=== PATIENT | male | born 1965 | race Caucasian/White ===

== ENCOUNTER 2020-10-17 08:01 | Emergency (ER) | payer SELFPAY ==
[~2020-10-17] VITALS: Ht 182.9 cm; Wt 77.2 kg
[~2020-10-17 08:01] MED LIST: ASPI-886 PO; FAMO20TA5 PO; IBUP-1027 PO; METO25TA4 PO; PSYL3.4P PO
--- NOTE | 2020-10-17 08:48 | RAD ---
Exam performed: One view chest. Indication: Reason: CHEST PAIN / Spl. Instructions: / History: Date of Service: 10/17/2020 8:30 AM Comparison: None available. Single AP upright portable view chest findings: Cardiomediastinal silhouette is within limits of normal. No acute infiltrates, effusion or pneumotho rax is detected. The bony structures are normal. Impression: No acute cardiopulmonary process is detected. Electronically signed by: Jesusita Chavez MD (10/17/2020 8:46 AM) [facility]PITALDaniele
[2020-10-17 08:53] LABS: BASO # 0.1 x10^3/uL (0.0-0.2); BASO % 1 % (0-3); EOS # 0.2 x10^3/uL (0.0-0.7); EOS % 2 % (0-3); HEMATOCRIT 41.5 % (39.0-53.0); HEMOGLOBIN 13.9 g/dL (13.0-17.5); LYMPH # 1.9 x10^3/uL (1.0-4.8); LYMPH % 20 % (24-48); MEAN CORPUSCULAR HEMOGLOBIN 30 pg (25-35); MEAN CORPUSCULAR HGB CONC 33 g/dL (31-37); MEAN CORPUSCULAR VOLUME 91 fL (79-100); MONO # 0.7 x10^3/uL (0.0-1.1); MONO % 8 % (0-9); NEUT # 6.4 x10^3/uL (1.8-7.7); NEUT % 69 % (31-73); PLATELET COUNT 308 x10^3/uL (140-400); RED BLOOD COUNT 4.58 x10^6/uL (4.30-5.70); RED CELL DISTRIBUTION WIDTH 13.4 % (11.5-14.5); WHITE BLOOD COUNT 9.2 x10^3/uL (4.0-11.0)
--- NOTE | 2020-10-17 08:53 | PHYS DOC ---
Past Medical History Past Medical History: Other Additional Past Medical Histor: Inguinal hernia, METH IV DRUG USER Past Surgical History: Other Additional Past Surgical Histo: HEART CATH X 2 STENTS Smoking Status: Current Every Day Smoker Alcohol Use: Sober Drug Use: Amphetamine General Adult EDM: Chief Complaint: HIGH BLOOD PRESSURE, CHEST PRESSURE HPI: HPI: Patient is a 55-year-old male who present to ER because he did not feel well today. Patient was just admitted here few days ago due to right inguinal hernia. Patient was found to be hypertensive, he was prescribed metoprolol 25 mg twice a day. 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 Patient had not get the money to buy the antihypertensive medication. Patient woke up this morning feeling Hof[place] and some aching in his chest area. They checked her blood pressure and it was elevated so they called EMS to get him here for evaluation. Currently patient denies any chest pain or any trouble breathing. His blood pressure was elevated. Patient denies any abdominal pain or any nausea vomiting. Patient denies any cough or fever. EKG and lab work today in the ER did not show any acute problem. Patient was given metoprolol p.o. in the ER, his blood pressure improved. Patient said he did call somebody to buy blood pressure medication for him. Patient was discharged back to the detox center. Review of Systems: Review of Systems: Constitutional: Denies fever or chills. [] Eyes: Denies change in visual acuity. [] HENT: Denies nasal congestion or sore throat. [] Respiratory: Denies cough or shortness of breath. [] Cardiovascular: Positive chest pressure, no edema GI: Denies abdominal pain, nausea, vomiting, bloody stools or diarrhea. [] : Denies dysuria. [] Musculoskeletal: Denies back pain or joint pain. [] Integument: Denies rash. [] Neurologic: Denies headache, focal weakness or sensory changes. [] Endocrine: Denies polyuria or polydipsia. [] Lymphatic: Denies swollen glands. [] Psychiatric: Denies depression or anxiety. [] Heart Score: C/O Chest Pain: Yes HEART Score for Chest Pain: HEART Score for Chest Pain Response (Comments) Value History Slighlty/Non-Suspicious 0 ECG Normal 0 Age >45 - < 65 1 Risk Factors 1 or 2 Risk Factors 1 Troponin < Normal Limit 0 Total 2 Risk Factors: Risk Factors: DM, Current or recent (<one month) smoker, HTN, HLP, family history of CAD, obesity. Risk Scores: Score 0 - 3: 2.5% MACE over next 6 weeks - Discharge Home Score 4 - 6: 20.3% MACE over next 6 weeks - Admit for Clinical Observation Score 7 - 10: 72.7% MACE over next 6 weeks - Early Invasive Strategies Allergies: Allergies: Allergies Coded Allergies Type Severity Reaction Last Updated Verified No Known Drug Allergies 10/13/20 No Physical Exam: PE: Constitutional: Well developed, well nourished, no acute distress, non-toxic appearance. [] HENT: Normocephalic, atraumatic, bilateral external ears normal, oropharynx moist, no oral exudates, nose normal. [] Eyes: PERRLA, EOMI, conjunctiva normal, no discharge. [] Neck: Normal range of motion, no tenderness, supple, no stridor. [] Cardiovascular:Heart rate regular rhythm, no murmur [] Lungs & Thorax: Bilateral breath sounds clear to auscultation [] Abdomen: Bowel sounds normal, soft, no tenderness, no masses, no pulsatile masses. [] Skin: Warm, dry, no erythema, no rash. [] Back: No tenderness, no CVA tenderness. [] Extremities: No tenderness, no cyanosis, no clubbing, ROM intact, no edema. [] Neurologic: Alert and oriented X 3, normal motor function, normal sensory fun ction, no focal deficits noted. [] Psychologic: Affect normal, judgement normal, mood normal. [] Current Patient Data: Vital Signs: Vital Signs Date Time Temp Pulse Resp B/P (MAP) Pulse Ox O2 Delivery O2 Flow Rate FiO2 10/17/20 08:01 98.1 76 17 163/85 (111 100 Room Air 98.1 EKG: EKG: EKG was done at 815, heart rate 71 bpm, sinus rhythm, no ST segment elevation. Radiology/Procedures: Radiology/Procedures: [][facility] [address] [place] [address] IMAGING REPORT Signed PATIENT: MYRNA GRANTACCOUNT: [id number] : 1965 LOCATION: ER AGE: 55 SEX: M EXAM STATUS: REG ER ORD. PHYSICIAN: TEOFILO DAVIS DO REASON: CHEST PAIN PROCEDURE: PORTABLE CHEST 1V Exam performed: One view chest. Indication: Reason: CHEST PAIN / Spl. Instructions: / History: Date of Service: 10/17/2020 8:30 AM Comparison: None available. Single AP upright portable view chest findings: Cardiomediastinal silhouette is within limits of normal. No acute infiltrates, effusion or pneumothorax is detected. The bony structures are normal. Impression: No acute cardiopulmonary process is detected. Electronically signed by: Javi Adair MD (10/17/2020 8:46 AM) [facility] DICTATED and SIGNED BY: JAVI ADAIR MD DATE: 10/17/20 [id number] 0 Course & Med Decision Making: Course & Med Decision Making Pertinent Labs and Imaging studies reviewed. (See chart for details) Patient is a 55-year-old male who present to ER because he did not feel well today. Patient was just admitted here few days ago due to right inguinal hernia. Patient was found to be hypertensive, he was prescribed metoprolol 25 mg twice a day. 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 Patient had not get the money to buy the antihypertensive medication. Patient woke up this morning feeling [place] and some aching in his chest area. They checked her blood pressure and it was elevated so they called EMS to get him here for evaluation. Currently patient denies any chest pain or any trouble breathing. His blood pressure was elevated. Patient denies any abdominal pain or any nausea vomiting. Patient denies any cough or fever. Dragon Disclaimer: Dragon Disclaimer: This electronic medical record was generated, in whole or in part, using a voice recognition dictation system. Departure Departure Impression: Primary Impression: Hypertension Disposition: 01 HOME / SELF CARE / HOMELESS Condition: IMPROVED Referrals: NO PCP (PCP) Please follow up with [facility] this week. [address], [address] [place] [address] Phone number: [phone] Patient Instructions: Hypertension Additional Instructions: Please take your blood pressure medication at prescribed from the last visits. TEOFILO DAVIS DO Oct 17, 2020 08:53
[2020-10-17 09:04] LABS: CALCIUM 8.8 mg/dL (8.5-10.1); CREATININE 0.9 mg/dL (0.7-1.3); GFR 87.6; POTASSIUM 4.6 mmol/L (3.5-5.1)
[2020-10-17 09:09] LABS: ALBUMIN 3.5 g/dL (3.4-5.0); ALBUMIN/GLOBULIN RATIO 1.1 (1.0-1.7); MAGNESIUM 2.1 mg/dL (1.8-2.4); TOTAL BILIRUBIN 0.3 mg/dL (0.2-1.0); TOTAL PROTEIN 6.6 g/dL (6.4-8.2)
[2020-10-17] MEDS ORDERED: METOPROLOL SUCC 24HR ER 25 MG TAB.ER.24H. PO ONE (09:15)
[2020-10-17 09:18] LABS: BILIRUBIN,URINE NEGATIVE (NEG); CLARITY,URINE CLEAR; COLOR,URINE YELLOW; NITRITE,URINE NEGATIVE (NEG); PROTEIN,URINE NEGATIVE (NEG-TRACE); UROBILINOGEN,URINE 0.2 mg/dL (0.2 mg/dL)
[2020-10-17 09:24] LABS: BACTERIA,URINE 0 /HPF (0-FEW); RBC,URINE OCC /HPF (0-2); WBC,URINE OCC /HPF (0-4)
[2020-10-17 14:10] VITALS: BP 151/82
--- NOTE | 2020-10-17 14:30 | EKG ---
[facility] [address] [place] [address] Test Date: 2020-10-17 Test Time: 08:10:56 Pat Name: MYRNA SOARES Department: Room: Gender: M [employer] Operator: : 1965 Requested By: TEOFILO DAVIS Order Number: [id number] Reading MD: Measurements Intervals [place] Rate: 71 P: 47 LA: 158 QRS: 3 QRSD: 114 T: 29 QT: 392 QTc: 431 Interpretive Statements SINUS RHYTHM QRS(T) CONTOUR ABNORMALITY CONSIDER ANTEROSEPTAL MYOCARDIAL DAMAGE POSSIBLY ABNORMAL ECG RI6.01 No previous ECG available for comparison
== END 2020-10-17 14:16 | disposition home or self-care (01) ==
LOC: ER 08:01
DX: I10 Essential (primary) hypertension (principal); R07.89 Other chest pain; F17.200 Nicotine dependence, unspecified, uncomplicated
CPT/HCPCS: 36415; 71045; 80053; 81001; 83690; 83735; 83880; 84484; 85025; 93005; 99285-25

== ENCOUNTER 2021-07-14 13:43 | Emergency (ER) | payer SELFPAY ==
[~2021-07-14] VITALS: Ht 182.9 cm; Wt 100.0 kg
[2021-07-14] MEDS ORDERED: fentaNYL PF VIAL 100 MCG/2 ML VIAL IVP ONE (15:00)
[2021-07-14 15:42] LABS: BASO % 1 % (0-3); EOS # 0.1 x10^3/uL (0.0-0.7); EOS % 2 % (0-3); HEMATOCRIT 42.6 % (39.0-53.0); HEMOGLOBIN 14.3 g/dL (13.0-17.5); LYMPH # 1.7 x10^3/uL (1.0-4.8); LYMPH % 21 % (24-48); MEAN CORPUSCULAR HEMOGLOBIN 31 pg (25-35); MEAN CORPUSCULAR HGB CONC 33 g/dL (31-37); MEAN CORPUSCULAR VOLUME 92 fL (79-100); MONO # 0.6 x10^3/uL (0.0-1.1); MONO % 8 % (0-9); NEUT # 5.6 x10^3/uL (1.8-7.7); NEUT % 69 % (31-73); PLATELET COUNT 304 x10^3/uL (140-400); RED BLOOD COUNT 4.63 x10^6/uL (4.30-5.70); RED CELL DISTRIBUTION WIDTH 13.9 % (11.5-14.5); WHITE BLOOD COUNT 8.1 x10^3/uL (4.0-11.0)
[2021-07-14 15:58] LABS: INFLUENZA A PATIENT NEGATIVE (NEGATIVE); INFLUENZA B PATIENT NEGATIVE (NEGATIVE)
[2021-07-14 16:02] LABS: BACTERIA,URINE 0 /HPF (0-FEW); RBC,URINE 0 /HPF (0-2); WBC,URINE 0 /HPF (0-4)
[2021-07-14 16:09] LABS: CREATININE 1.1 mg/dL (0.7-1.3); GFR 69.2; POTASSIUM 4.3 mmol/L (3.5-5.1)
[2021-07-14 16:14] LABS: ALBUMIN/GLOBULIN RATIO 1.3 (1.0-1.7); MAGNESIUM 2.4 mg/dL (1.8-2.4); TOTAL BILIRUBIN 0.3 mg/dL (0.2-1.0); TOTAL PROTEIN 7.1 g/dL (6.4-8.2)
[2021-07-14] MEDS ORDERED: IOHEXOL 300 MG/ML 100ML VIAL. IV ONE (16:30)
[2021-07-14] MEDS ORDERED: CONTRAST GIVEN. MC PRN (16:45)
--- NOTE | 2021-07-14 16:57 | RAD ---
EXAMINATION: CT ABDOMEN+PELVIS W. Technique: Axial images with coronal and sagittal reconstructions are performed of abdomen and pelvis with intravenous contrast. 75 mL of Omnipaque 300 was administered intravenously. One or more of the following radiation dose reduction techniques was used: automated exposure control , adjustment of mA and/or KV according to patient size, and/or utilization of iterative reconstructio n technique. HISTORY: 56 years Male Reason: abd pain, inguinal hernia / COMPARISON: None. FINDINGS: The lung bases are clear. The liver, spleen, pancreas, and adrenal glands appear unremarkable. The gallbladder is contracted. The kidneys have symmetric enhancement. There is no hydronephrosis. The abdominal aorta is normal in caliber. No para-aortic significantly enlarged lymph node is seen. T he urinary bladder appear unremarkable. There is a right indirect inguinal hernia extending into the right scrotum with herniating the ileal loops seen. There are no dilated bowel loops to suggest obstruction. There is diverticulosis. No dive rticulitis. The mesentery demonstrate the slight stranding around the mesenteric pedicle leading into the right i nguinal hernia. The mesenteric catheter veins and arteries appears to be patent. The no significant free fluid or fluid collection in the abdomen or pelvis is seen. The osseous structures appear grossly unremarkable. IMPRESSION: 1. Right indirect inguinal hernia with herniating ileal loops into the right side of the scrotum. No intestinal obstruction. There is however mild stranding in the mesentery leading into the hernia of u ncertain significance. Surgical consultation is recommended. 2. Diverticulosis. No diverticulitis. Electronically signed by: Barry Costello MD (07/14/2021 4:54 PM) [id number]
[2021-07-14] MEDS ORDERED: HYDR-2761 PO (17:23)
--- NOTE | 2021-07-14 17:24 | PHYS DOC ---
Past Medical History Past Medical History: Other Additional Past Medical Histor: Inguinal hernia, METH IV DRUG USER, CARDIAC STENTS Past Surgical History: Other Additional Past Surgical Histo: HEART CATH X 2 STENTS Smoking Status: Current Every Day Smoker Alcohol Use: Sober Drug Use: Amphetamine Adult General Chief Complaint Chief Complaint: ABDOMINAL PAIN HPI HPI Patient is a 56 year old male with abdominal pain. This is mainly in the lower quadrants bilaterally going into the right groin. Patient has a history of an inguinal hernia going into the right scrotum. He states it has been there for months, he is normally able to push it back in without problems, he has not really tried in the last week or so because it right pops right back out. He is still passing gas normally and has had normal bowel movements. He has not had any nausea, vomiting or fever. No chest pain, shortness of breath or other symptoms. Review of Systems Review of Systems Constitutional: Denies fever Eyes: Denies change in visual acuity or eye pain HENT: Denies sore throat Respiratory: Denies shortness of breath Cardiovascular: Denies chest pain GI: Reports abd pain : Denies dysuria Musculoskeletal: Denies back or extremity injury Integument: Denies rash or skin lesions Neurologic: Denies headache, focal weakness or sensory changes All other systems were reviewed and found to be within normal limits, except as documented in this note. Current Medications Current Medications Current Medications Medications (Trade) Dose Ordered Sig/[place] Start Time Stop Time Status Last Admin Dose Admin Fentanyl Citrate (Fentanyl 2ml Vial) 50 mcg 1X ONCE 07/14/21 15:00 07/14/21 15:01 DC 07/14/21 15:30 50 MCG Info (CONTRAST GIVEN -- Rx MONITORING) 1 each PRN DAILY PRN 07/14/21 16:45 07/16/21 16:44 Iohexol (Omnipaque 300 Mg/ml) 75 ml 1X ONCE 07/14/21 16:30 07/14/21 16:36 DC 07/14/21 16:36 75 ML Allergies Allergies Allergies Coded Allergies Type Severity Reaction Last Updated Verified codeine Adverse Reaction Intermediate NAUSEA 07/14/21 Yes Physical Exam Physical Exam Constitutional: Well developed, well nourished, no acute distress, non-toxic appearance. HENT: Normocephalic, atraumatic, bilateral external ears normal, mucosa moist, nose normal. Eyes: EOMI, conjunctiva normal, no discharge. Neck: Normal range of motion, supple, no stridor, no meningeal signs. Cardiovascular: Regular rate and rhythm Lungs & Thorax: Bilateral breath sounds clear to auscultation Abdomen: Soft, mild tenderness in the right lower quadrant which does extend to the right groin. Patient has a inguinal hernia going into the right portion of the scrotum, this is reducible but there was mild difficulty with reduction. Skin: Warm, dry, no erythema, no rash. Extremities: No tenderness, no cyanosis, no clubbing, ROM intact, no edema. Neurologic: Alert and oriented, normal motor function, normal sensory function, no focal deficits noted. Psychologic: Affect normal, judgement normal, mood normal. Current Patient Data Vital Signs Vital Signs Date Time Temp Pulse Resp B/P (MAP) Pulse Ox O2 Delivery O2 Flow Rate FiO2 07/14/21 15:30 16 98 Room Air 07/14/21 14:04 98.5 85 142/83 (102) 98.5 Lab Values Laboratory Tests Test 07/14/21 15:00 07/14/21 15:20 07/14/21 15:24 Influenza Type A Antigen Negative (NEGATIVE) Influenza Type B Antigen Negative (NEGATIVE) SARS-CoV-2 Antigen (Rapid) Negative (NEGATIVE) Urine Collection Type Unknown Urine Color (Auto) Yellow Urine Turbidity Clear Urine pH (Auto) 6.5 (<5.0-8.0) Urine Specific [place] 1.026 (1.000-1.030) Urine Protein (Auto) Negative mg/dL (Negative) Urine Glucose (Auto)(UA) Negative mg/dL (Negative) Urine Ketones (Auto) Negative mg/dL (Negative) Urine Blood (Auto) Negative (Negative) Urine Nitrite Negative (Negative) Urine Bilirubin (Auto) Negative (Negative) Urine Urobilinogen (Auto) 4 mg/dL (Normal) Urine Leukocyte Esterase (Auto) Negative (Negative) Urine RBC 0 /HPF (0-2) Urine WBC 0 /HPF (0-4) Urine Bacteria 0 /HPF (0-FEW) White Blood Count 8.1 x10^3/uL (4.0-11.0) Red Blood Count 4.63 x10^6/uL (4.30-5.70) Hemoglobin 14.3 g/dL (13.0-17.5) Hematocrit 42.6 % (39.0-53.0) Mean Corpuscular Volume 92 fL (79-100) Mean Corpuscular Hemoglobin 31 pg (25-35) Mean Corpuscular Hemoglobin Concent 33 g/dL (31-37) Red Cell Distribution Width 13.9 % (11.5-14.5) Platelet Count 304 x10^3/uL (140-400) Neutrophils (%) (Auto) 69 % (31-73) Lymphocytes (%) (Auto) 21 % (24-48) L Monocytes (%) (Auto) 8 % (0-9) Eosinophils (%) (Auto) 2 % (0-3) Basophils (%) (Auto) 1 % (0-3) Neutrophils # (Auto) 5.6 x10^3/uL (1.8-7.7) Lymphocytes # (Auto) 1.7 x10^3/uL (1.0-4.8) Monocytes # (Auto) 0.6 x10^3/uL (0.0-1.1) Eosinophils # (Auto) 0.1 x10^3/uL (0.0-0.7) Basophils # (Auto) 0.0 x10^3/uL (0.0-0.2) Sodium Level 142 mmol/L (136-145) Potassium Level 4.3 mmol/L (3.5-5.1) Chloride Level 106 mmol/L (98-107) Carbon Dioxide Level 28 mmol/L (21-32) Anion Gap 8 (6-14) Blood Urea Nitrogen 14 mg/dL (8-26) Creatinine 1.1 mg/dL (0.7-1.3) Estimated GFR (Cockcroft-Gault) 69.2 BUN/Creatinine Ratio 13 (6-20) Glucose Level 94 mg/dL (70-99) Lactic Acid Level 0.6 mmol/L (0.4-2.0) Calcium Level 9.0 mg/dL (8.5-10.1) Magnesium Level 2.4 mg/dL (1.8-2.4) Total Bilirubin 0.3 mg/dL (0.2-1.0) Aspartate Amino Transferase (AST) 18 U/L (15-37) Alanine Aminotransferase (ALT) 27 U/L (16-63) Alkaline Phosphatase 50 U/L (46-116) Total Protein 7.1 g/dL (6.4-8.2) Albumin 4.0 g/dL (3.4-5.0) Albumin/Globulin Ratio 1.3 (1.0-1.7) Lipase 65 U/L (73-393) L Laboratory Tests 07/14/21 15:24 Laboratory Tests 07/14/21 15:24 EKG EKG [] Radiology/Procedures Radiology/Procedures [] Impressions: PATIENT: MYRNA GRANTACCOUNT: [id number]#: [id number] : 1965 LOCATION: ER AGE: 56 SEX: M EXAM STATUS: REG ER ORD. PHYSICIAN: TERRI REYNOLDS MD REASON: abd pain, inguinal hernia PROCEDURE: CT ABD PELV W/ IV CONTRST ONLY EXAMINATION: CT ABDOMEN+PELVIS W. Technique: Axial images with coronal and sagittal reconstructions are performed of abdomen and pelvis with intravenous contrast. 75 mL of Omnipaque 300 was administered intravenously. One or more of the following radiation dose reduction techniques was used: automated exposure control, adjustment of mA and/or KV according to patient size, and/or utilization of iterative reconstruction technique. HISTORY: 56 years Male Reason: abd pain, inguinal hernia / COMPARISON: None. FINDINGS: The lung bases are clear. The liver, spleen, pancreas, and adrenal glands appear unremarkable. The gallbladder is contracted. The kidneys have symmetric enhancement. There is no hydronephrosis. The abdominal aorta is normal in caliber. No para-aortic significantly enlarged lymph node is seen. The urinary bladder appear unremarkable. There is a right indirect inguinal hernia extending into the right scrotum with herniating the ileal loops seen. There are no dilated bowel loops to suggest obstruction. There is diverticulosis. No diverticulitis. The mesentery demonstrate the slight stranding around the mesenteric pedicle leading into the right inguinal hernia. The mesenteric catheter veins and arteries appears to be patent. The no significant free fluid or fluid collection in the abdomen or pelvis is seen. The osseous structures appear grossly unremarkable. IMPRESSION: 1. Right indirect inguinal hernia with herniating ileal loops into the right side of the scrotum. No intestinal obstruction. There is however mild stranding in the mesentery leading into the hernia of uncertain significance. Surgical consultation is recommended. 2. Diverticulosis. No diverticulitis. Electronically signed by: Asim Costello MD (07/14/2021 4:54 PM) [id number] DICTATED and SIGNED BY: ASIM COSTELLO MD DATE: 07/14/21 [id number] Course & Med Decision Making Course & Med Decision Making Pertinent Labs and Imaging studies reviewed. (See chart for details) [] This is a 56-year-old male with a direct inguinal hernia and associated abdominal pain. CT demonstrates the hernia without evidence of strangulation. Lab studies are unremarkable. At this point the hernia was reducible without any necessary pain medication or sedation. We will have the patient follow-up with general surgery and given a prescription for [place] to be used sparingly over the next 3 days. Should symptoms become worse or other concerns arise he should return to the emergency department, otherwise he stable for discharge at this time. Dragon Disclaimer Dragon Disclaimer This electronic medical record was generated, in whole or in part, using a voice recognition dictation system. Departure Departure Impression: Primary Impression: Incarcerated right inguinal hernia Disposition: HOME / SELF CARE / HOMELESS Condition: STABLE Referrals: NO PCP (PCP) ZEHRA LANDRY MD Patient Instructions: Inguinal Hernia, Adult Scripts Hydrocodone Bit/Acetaminophen (HYDROCODONE-APAP 5-325 ) 1 Tab Tablet 1 TAB PO PRN Q6HRS PRN for PAIN, #10 TAB 0 Refills Prov: TERRI REYNOLDS MD 07/14/21 TERRI REYNOLDS MD Jul 14, 2021 17:24
[2021-07-14 18:11] VITALS: BP 160/103
== END 2021-07-14 18:37 | disposition home or self-care (01) ==
LOC: ER 13:43
DX: K40.30 Unilateral inguinal hernia, with obstruction, without gangrene, not specified as recurrent (principal); F17.200 Nicotine dependence, unspecified, uncomplicated; Z20.822 Contact with and (suspected) exposure to COVID-19; Z95.5 Presence of coronary angioplasty implant and graft; Z88.5 Allergy status to narcotic agent
CPT/HCPCS: 36415; 74177; 80053; 81001; 83605; 83690; 83735; 85025; 87428; 96374; 99285; J3010; Q9967